=== PATIENT | female | born 1985 | race Caucasian/White ===

== ENCOUNTER 2017-12-12 04:39 | Inpatient (IN) | payer BC ==
[2017-12-12] MEDS ORDERED: Lidocaine 1% 50 ML MDV INJECT PRN (04:56)
[2017-12-12] MEDS ORDERED: Tranexamic Acid 1,000 MG in Sodium Chloride 0.9% 100 ML IV PRN (04:56)
[2017-12-12] MEDS ORDERED: Butorphanol 1 MG/ML SDV IVPUSH PRN (04:56)
[2017-12-12] MEDS ORDERED: Sodium Chloride 0.9% 2.5 ML Syringe FLUSH PRN (04:56)
[2017-12-12] MEDS ORDERED: Carboprost Tromethamine 250 MCG/1 ML Amp IM PRN (04:56)
[2017-12-12] MEDS ORDERED: Water For Irrigation,Sterile 1,000 ML Container IRR PRN (04:56)
[2017-12-12] MEDS ORDERED: Methylergonovine 0.2 MG/1 ML Amp IM PRN (04:56)
[2017-12-12] MEDS ORDERED: Nalbuphine 10 MG/1 ML Vial IVPUSH PRN (04:56)
[2017-12-12] MEDS ORDERED: Misoprostol 200 MCG Tab PO PRN (04:56)
[2017-12-12] MEDS ORDERED: Sodium Chloride 0.9% 10 ML Syringe FLUSH PRN (04:56)
[2017-12-12] MEDS ORDERED: Lactated Ringers 1,000 ML IV SCH (05:00)
[2017-12-12] MEDS ORDERED: Oxytocin/0.9 % Sodium Chloride 30 UNIT/500 ML BAG IV SCH (05:00)
[2017-12-12] MEDS ORDERED: Benzocaine/Menthol 20%-0.5% Spray 78 GM Cannister TOP PRN (05:44)
[2017-12-12] MEDS ORDERED: oxyCODONE 5 MG Tab PO PRN (05:44)
[2017-12-12] MEDS ORDERED: Lanolin 100% Cream 7 GM Tube TOP PRN (05:44)
[2017-12-12] MEDS ORDERED: Docusate Sodium 100 MG Cap PO PRN (05:44)
[2017-12-12] MEDS ORDERED: Ibuprofen 800 MG Tab PO PRN (05:44)
[2017-12-12] MEDS ORDERED: Bisacodyl 10 MG Supp RECTAL PRN (05:44)
[2017-12-12] MEDS ORDERED: Acetaminophen 500 MG Tab PO PRN ×2 (05:44)
[2017-12-12] MEDS ORDERED: Ibuprofen 400 MG Tab PO PRN (05:44)
[2017-12-12] MEDS ORDERED: Witch Hazel Medicated Pads 40/Jar TOP PRN (05:44)
--- NOTE | 2017-12-12 07:48 | OR ---
SURGEON: Azalea Lucero M.D. DATE OF PROCEDURE: 12/12/2017 PREOPERATIVE DIAGNOSES: 1. A 40 and 5 weeks' intrauterine . 2. Active labor. POSTOPERATIVE DIAGNOSES: 1. A 40 and 5 weeks' intrauterine . 2. Active labor. PROCEDURE PERFORMED: Spontaneous vaginal delivery with intact perineum. ANESTHESIA: Local. ESTIMATED BLOOD LOSS: 300 mL. FINDINGS: Term female, scores of 9 at 1 minute and 10 at 5 minutes, weight of 3800 g. 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 Spontaneous delivery, intact placenta, 3-vessel cord. DISPOSITION: Infant to nursery and mom in LDRP, stable. PROCEDURE IN DETAIL: Nicole is a 32-year-old at 40 and 5 weeks' gestational age, who presented this morning with onset of labor at approximately 3:00 a.m. She presented shortly before 5:00 a.m. On initial examination, she was found to be 7 cm dilated with a bulging bag of water. She was admitted. Routine labs were drawn. She was requesting epidural, but quickly progressed to complete with the urge to push. I was called for delivery. Upon my arrival, the patient was placed in modified dorsal lithotomy position. She at that point had spontaneous rupture of membranes. Clear fluid was noted and was found to be a +4 station. Therefore, with next contraction was able to deliver infant's head atraumatically, spontaneously, followed by anterior shoulder, posterior shoulder, and main body without difficulty. The infant's oropharynx and nares were bulb suctioned. Cord was clamped x2 and cut. was handed off to her mother with attending nursing staff at her side. Cord arterial and cord venous, cord blood sampling was obtained. A light pressure was applied while the placenta was delivered spontaneously intact. Vigorous fundal uterine massage was then applied while 30 units Pitocin was delivered in 500 mL of IV fluid. Upon inspection of the cervix, vaginal sidewalls, and perineum, these were found to be intact. I was able to deliver approximately 8 mL of 1% lidocaine to the midline perineum just prior to delivery as the patient had requested this. Sponge count and needle count were correct. Uterus remained firm. Hemostasis was evident. The patient remained in the LDRP and to nursery. DOM / DC /[id number]
--- NOTE | 2017-12-13 08:04 | PCM.PNPP ---
<Isabella Dennis - Last Filed: 12/13/17 07:59> - General Info Date of Service: 12/13/17 Functional Status: Reports: Pain Controlled, Tolerating Diet, Ambulating, Urinating - Review of Systems General: Denies: Fever, Weakness, Fatigue Pulmonary: Denies: Shortness of Breath, Pleuritic Chest Pain, Cough Cardiovascular: Denies: Chest Pain, Palpitations, Dyspnea on Exertion Gastrointestinal: Denies: Abdominal Pain Genitourinary: Denies: Dysuria - General Info Date of Service: 12/13/17 - Patient Data Vital Signs - Most Recent: Last Vital Signs Temp 36.6 C 12/13/17 07:45 Pulse 74 12/13/17 07:45 Resp 16 12/13/17 07:45 BP 112/65 12/13/17 07:45 Pulse Ox 97 12/13/17 07:45 Weight - Most Recent: 88.451 kg Lab Results - Last 24 Hours: Laboratory Results - last 24 hr 12/12/17 Range/Units 11:50 Hgb 12.1 (12.0-16.0) g/dL Hct 37.4 (36.0-46.0) % Med Orders - Current: Current Medications Acetaminophen (Tylenol Extra Strength) 500 mg PO Q4H PRN PRN Reason: Pain Acetaminophen (Tylenol Extra Strength) 1,000 mg PO Q4H PRN PRN Reason: Pain Benzocaine/Menthol (Dermoplast Pain Relief 20%-0.5% [place]) 78 gm TOP ASDIRECTED PRN PRN Reason: Perineal Comfort Measure Bisacodyl (Dulcolax) 10 mg RECTAL .ONCE PRN PRN Reason: Constipation Carboprost Tromethamine (Hemabate Ds) 250 mcg IM ASDIRECTED PRN PRN Reason: Post Hemorrhage Docusate Sodium (Colace) 100 mg PO BID PRN PRN Reason: Constipation Last Admin: 12/13/17 04:19 Dose: 100 mg Emollient Ointment (Lansinoh Hpa) 0 gm TOP ASDIRECTED PRN PRN Reason: Sore Nipples Lactated Ringer's (Ringers, Lactated) 1,000 mls @ 150 mls/hr IV ASDIRECTED HECTOR Last Admin: 12/12/17 05:05 Dose: 150 mls/hr Oxytocin/Sodium Chloride (Oxytocin 30 Unit/500 Ml-Ns) 30 unit in 500 mls @ 999 mls/hr IV TITRATE HECTOR Last Admin: 12/12/17 05:26 Dose: 999 mls/hr Tranexamic Acid 1,000 mg/ (Sodium Chloride) 110 mls @ 660 mls/hr IV ONETIME PRN PRN Reason: Bleeding Ibuprofen (Motrin) 400 mg PO Q4H PRN PRN Reason: Pain Ibuprofen (Motrin) 800 mg PO Q6H PRN PRN Reason: Pain Last Admin: 12/12/17 06:06 Dose: 800 mg Lidocaine HCl (Xylocaine 1%) 50 ml INJECT .ONCE PRN PRN Reason: Laceration repair Last Admin: 12/12/17 05:24 Dose: 50 ml Methylergonovine Maleate (Methergine) 0.2 mg IM ASDIRECTED PRN PRN Reason: Post Hemorrhage Oxycodone HCl (Oxycodone) 5 mg PO Q2H PRN PRN Reason: Pain Sodium Chloride (Saline Flush) 10 ml FLUSH ASDIRECTED PRN PRN Reason: Keep Vein Open Sodium Chloride (Saline Flush) 2.5 ml FLUSH ASDIRECTED PRN PRN Reason: Keep Vein Open Sterile Water (Sterile Water For Irrigation) 1,000 ml IRR ASDIRECTED PRN PRN Reason: delivery Witch Corie (Tucks) 1 pad TOP ASDIRECTED PRN PRN Reason: comfort care Discontinued Medications Butorphanol Tartrate (Stadol) 1 mg IVPUSH Q1H PRN PRN Reason: Pain Misoprostol (Cytotec) 200 mcg PO .ONCE PRN PRN Reason: Post Hemorrhage Nalbuphine HCl (Nubain) 10 mg IVPUSH Q1H PRN PRN Reason: Pain (severe 7-10) - Infant Interaction Disposition, : [place] in Room with Family Interaction: Holding Infant Feeding: Breastfed Infant; Nursed Well Support Person: - Recovery Exam Fundal Tone: Firm Fundal Level: At Umbilicus Fundal Placement: Midline Lochia Amount: Scant Lochia Color: Rubra/Red Perineum Description: Intact, Minimal Bruising/Swelling Episiotomy/Laceration: None Bladder Status: Voiding Urinary Elimination: Voided - Exam General: Alert, Oriented Neck: Supple Lungs: Clear to Auscultation, Normal Respiratory Effort Cardiovascular: Regular Rate, Regular Rhythm GI/Abdominal Exam: Normal Bowel Sounds, Soft, Non-Tender, No Distention Extremities: Normal Inspection, Normal Capillary Refill, Pedal Edema (trace) Skin: Warm, Dry, Intact Psy/Mental Status: Alert - Problem List & Annotations (1) Vaginal delivery SNOMED Code(s): 241606902 Code(s): O80 - ENCOUNTER FOR FULL-TERM UNCOMPLICATED DELIVERY Status: Acute Current Visit: Yes - Problem List Review Problem List Initiated/Reviewed/Updated: Yes - Assessment Assessment:: PPD#1 from . Minimal pain and lochia. Breast feeding well. Discharge home today. - Plan Plan:: Discharge instructions reviewed. Nothing in the vagina for 6 weeks. Continue PNV while breast feeding. Can use OTC ibuprofen/tylenol as needed for pain. Instructed patient to call if she develops fever greater than 101 or bleeding through a large pad an hour. F/U with [facility] in 6 weeks. <Azalea Lucero - Last Filed: 12/13/17 09:02> - Patient Data Vital Signs - Most Recent: Last Vital Signs Temp 36.6 C 12/13/17 07:45 Pulse 74 12/13/17 07:45 Resp 16 12/13/17 07:45 BP 112/65 12/13/17 07:45 Pulse Ox 97 12/13/17 07:45 Lab Results - Last 24 Hours: Laboratory Results - last 24 hr 12/12/17 Range/Units 11:50 Hgb 12.1 (12.0-16.0) g/dL Hct 37.4 (36.0-46.0) % Med Orders - Current: Current Medications Acetaminophen (Tylenol Extra Strength) 500 mg PO Q4H PRN PRN Reason: Pain Acetaminophen (Tylenol Extra Strength) 1,000 mg PO Q4H PRN PRN Reason: Pain Benzocaine/Menthol (Dermoplast Pain Relief 20%-0.5% [place]) 78 gm TOP ASDIRECTED PRN PRN Reason: Perineal Comfort Measure Bisacodyl (Dulcolax) 10 mg RECTAL .ONCE PRN PRN Reason: Constipation Carboprost Tromethamine (Hemabate Ds) 250 mcg IM ASDIRECTED PRN PRN Reason: Post Hemorrhage Docusate Sodium (Colace) 100 mg PO BID PRN PRN Reason: Constipation Last Admin: 12/13/17 04:19 Dose: 100 mg Emollient Ointment (Lansinoh Hpa) 0 gm TOP ASDIRECTED PRN PRN Reason: Sore Nipples Lactated Ringer's (Ringers, Lactated) 1,000 mls @ 150 mls/hr IV ASDIRECTED [facility] Last Admin: 12/12/17 05:05 Dose: 150 mls/hr Oxytocin/Sodium Chloride (Oxytocin 30 Unit/500 Ml-Ns) 30 unit in 500 mls @ 999 mls/hr IV TITRATE [facility] Last Admin: 12/12/17 05:26 Dose: 999 mls/hr Tranexamic Acid 1,000 mg/ (Sodium Chloride) 110 mls @ 660 mls/hr IV ONETIME PRN PRN Reason: Bleeding Ibuprofen (Motrin) 400 mg PO Q4H PRN PRN Reason: Pain Ibuprofen (Motrin) 800 mg PO Q6H PRN PRN Reason: Pain Last Admin: 12/12/17 06:06 Dose: 800 mg Lidocaine HCl (Xylocaine 1%) 50 ml INJECT .ONCE PRN PRN Reason: Laceration repair Last Admin: 12/12/17 05:24 Dose: 50 ml Methylergonovine Maleate (Methergine) 0.2 mg IM ASDIRECTED PRN PRN Reason: Post Hemorrhage Oxycodone HCl (Oxycodone) 5 mg PO Q2H PRN PRN Reason: Pain Sodium Chloride (Saline Flush) 10 ml FLUSH ASDIRECTED PRN PRN Reason: Keep Vein Open Sodium Chloride (Saline Flush) 2.5 ml FLUSH ASDIRECTED PRN PRN Reason: Keep Vein Open Sterile Water (Sterile Water For Irrigation) 1,000 ml IRR ASDIRECTED PRN PRN Reason: delivery Witch Corie (Tucks) 1 pad TOP ASDIRECTED PRN PRN Reason: comfort care Discontinued Medications Butorphanol Tartrate (Stadol) 1 mg IVPUSH Q1H PRN PRN Reason: Pain Misoprostol (Cytotec) 200 mcg PO .ONCE PRN PRN Reason: Post Hemorrhage Nalbuphine HCl (Nubain) 10 mg IVPUSH Q1H PRN PRN Reason: Pain (severe 7-10) - Plan Plan:: patient seen and examined, agree with above
== END 2017-12-13 09:55 | disposition home or self-care (01) | DRG 560 ==
LOC: MW.OBCHECK 04:39 → MW.OB 04:44 → MW.OBCHECK 05:00 → MW.OB 05:00 → OBSVTOIN 05:25 → MW.OB 16:02
PROVIDERS: ADMIT Obstetrics & Gynecology; ATTEND Obstetrics & Gynecology
PROC: 10E0XZZ Delivery of Products of Conception, External Approach (ICD-10-PCS; principal; 2017-12-12)
DX: O80 Encounter for full-term uncomplicated delivery (principal); Z3A.40 40 weeks gestation of pregnancy; Z37.0 Single live birth
CPT/HCPCS: 36415; 59025; 59409; 82803; 85014; 85018; 85027; 86850; 86900; 86901; A9270-GY; J2590; J7120